=== PATIENT | female | born 1970 | race Caucasian/White ===

== ENCOUNTER → 2020-07-17 | Outpatient (CLI) | payer BC, OTHER ==
[~2020-07-17] MED LIST: CEFUROXIME250 MG PO; CEFUROXIME500 MG PO; CHLORTHALIDONE25 MG PO; KEFLEX CAP 500500 MG PO; LODINE CAP 300300 MG PO; NORCO 5-325 TA1 EACH PO; VALSARTAN160 MG PO; ZOFRAN ODT 4 MG4 MG PO
[2020-07-18 08:13] LABS: RED BLOOD COUNT 4.5 M/UL (4.00-5.10); WHITE BLOOD COUNT 6.3 K/UL (4.5-11.0)
== END ==
LOC: LAB 07:57
PROVIDERS: Internal Medicine Nephrology
DX: N18.4 Chronic kidney disease, stage 4 (severe) (principal)
CPT/HCPCS: 36415; 80069; 81001; 82570; 83970; 84156; 85018; 85027

== ENCOUNTER → 2020-09-23 | Outpatient (CLI) | payer BC, OTHER ==
[2020-09-23 10:06] LABS: HEMOGLOBIN 13.1 gm/dl (12.3-15.3); RED BLOOD COUNT 4.45 M/UL (4.00-5.10); WHITE BLOOD COUNT 5.9 K/UL (4.5-11.0)
== END ==
LOC: LAB 09:36
PROVIDERS: Internal Medicine Nephrology
DX: N18.4 Chronic kidney disease, stage 4 (severe) (principal)
CPT/HCPCS: 36415; 80069; 82570; 84156; 85027

== ENCOUNTER 2020-09-25 22:29 | Emergency (ER) | payer BC, OTHER ==
[~2020-09-25 22:29] MED LIST changes: -CEFUROXIME250 MG PO; -CEFUROXIME500 MG PO; -LODINE CAP 300300 MG PO; -ZOFRAN ODT 4 MG4 MG PO
[2020-09-26 00:39] LABS: HEMOGLOBIN 12.3 gm/dl (12.3-15.3); RED BLOOD COUNT 4.26 M/UL (4.00-5.10)
[2020-09-26 00:44] LABS: WHITE BLOOD COUNT 9.1 K/UL (4.5-11.0)
[2020-09-26] MEDS ORDERED: LODINE CAP 300300 MG PO (01:02)
[2020-09-26] MEDS ORDERED: CEFUROXIME500 MG PO (01:02)
[2020-09-26] MEDS ORDERED: ZOFRAN ODT 4 MG4 MG PO (01:02)
[2020-09-26] MEDS ORDERED: CEFUROXIME250 MG PO (01:19)
== END 2020-09-26 01:50 | disposition home or self-care (01) ==
LOC: ER1 22:29
PROVIDERS: Physician Assistant
DX: N39.0 Urinary tract infection, site not specified (principal); I10 Essential (primary) hypertension; Z90.49 Acquired absence of other specified parts of digestive tract; Z88.2 Allergy status to sulfonamides; Z85.828 Personal history of other malignant neoplasm of skin
CPT/HCPCS: 80053; 81001; 83605; 83690; 85025; 87040; 87086; 96374; 96375; 99284; J0696; J1885; J2405

== ENCOUNTER → 2020-09-27 | Outpatient (CLI) | payer BC, OTHER ==
[~2020-09-27] MED LIST changes: +CEFUROXIME250 MG PO; +CEFUROXIME500 MG PO; +LODINE CAP 300300 MG PO; +ZOFRAN ODT 4 MG4 MG PO
== END ==
LOC: LAB 13:26
PROVIDERS: Family Medicine
DX: N39.0 Urinary tract infection, site not specified (principal); N18.9 Chronic kidney disease, unspecified
CPT/HCPCS: 36415; 80048

== ENCOUNTER → 2020-11-22 | Outpatient (CLI) | payer BC ==
[2020-11-22 09:33] LABS: HEMOGLOBIN 12.1 gm/dl (12.3-15.3); RED BLOOD COUNT 4.16 M/UL (4.00-5.10); WHITE BLOOD COUNT 4.3 K/UL (4.5-11.0)
== END ==
LOC: LAB 08:18
PROVIDERS: Internal Medicine Nephrology
DX: N18.4 Chronic kidney disease, stage 4 (severe) (principal)
CPT/HCPCS: 36415; 80069; 82570; 83970; 84156; 85027

== ENCOUNTER → 2021-03-26 | Outpatient (CLI) | payer BC ==
[2021-03-26 08:20] LABS: HEMOGLOBIN 13.2 gm/dl (12.3-15.3); RED BLOOD COUNT 4.76 M/UL (4.00-5.10)
== END ==
LOC: LAB 07:39
PROVIDERS: Internal Medicine Nephrology
DX: I12.0 Hypertensive chronic kidney disease with stage 5 chronic kidney disease or end stage renal disease (principal); N18.5 Chronic kidney disease, stage 5
CPT/HCPCS: 80069; 82570; 84156; 85027

== ENCOUNTER → 2021-06-25 | Outpatient (CLI) | payer BC ==
[2021-06-25 11:18] LABS: HEMOGLOBIN 12.5 gm/dl (12.3-15.3); RED BLOOD COUNT 4.6 M/UL (4.00-5.10); WHITE BLOOD COUNT 7.6 K/UL (4.5-11.0)
[2021-06-27 06:10] LABS: CYSTATIN C 3.05 mg/L (0.59-1.23); VITAMIN D, 25-HYDROXY 27.1 ng/mL (30.0-100.0)
== END ==
LOC: LAB 10:44
PROVIDERS: Internal Medicine Nephrology
DX: I12.0 Hypertensive chronic kidney disease with stage 5 chronic kidney disease or end stage renal disease (principal); N18.5 Chronic kidney disease, stage 5; E55.9 Vitamin D deficiency, unspecified
CPT/HCPCS: 36415; 80069; 82570; 83970; 84156; 85027

== ENCOUNTER → 2021-09-29 | Outpatient (CLI) | payer BC ==
[2021-09-29 07:35] LABS: HEMOGLOBIN 13.1 gm/dl (12.3-15.3); RED BLOOD COUNT 4.72 M/UL (4.00-5.10); WHITE BLOOD COUNT 6.7 K/UL (4.5-11.0)
== END ==
LOC: LAB 07:09
PROVIDERS: Internal Medicine Nephrology
DX: N18.5 Chronic kidney disease, stage 5 (principal)
CPT/HCPCS: 36415; 80069; 82570; 84156; 85027